=== PATIENT | male | born 1995 | race African-American/Black ===

== ENCOUNTER 2025-02-05 22:59 | Inpatient (IN) | payer MEDICAID ==
[~2025-02-05] VITALS: Ht 177.8 cm; Wt 73.5 kg
[2025-02-05] MEDS ORDERED: MORPHINE SULFATE INJ 2 MG/ML DISP.SYRIN ONE (23:52)
[2025-02-05] MEDS ORDERED: MORPHINE SULFATE INJ 4 MG/ML DISP.SYRIN ONE (23:52)
[2025-02-05] MEDS ORDERED: ONDANSETRON HCL/PF 4 MG/2 ML VIAL ONE (23:52)
[2025-02-06] MEDS: MORPHINE SULFATE INJ 2 MG/ML DISP.SYRIN IV ONE (00:04)
[2025-02-06] MEDS: ONDANSETRON HCL/PF 4 MG/2 ML VIAL IVP ONE (00:04)
[2025-02-06] MEDS: IV NS 0.9% 1,000 ML BAG IV ONE (00:04)
[2025-02-06 00:18] LABS: BASOPHILS % (AUTO) 0.5 % (0.0-2.0); EOSINOPHILS % (AUTO) 0.6 % (0.0-6.0); HEMATOCRIT 36 % (39-51); HEMOGLOBIN 12.1 g/dL (13.5-17.5); LYMPHOCYTES # (AUTO) 1.1 K/uL (0.8-4.8); LYMPHOCYTES % (AUTO) 13.8 % (20.0-44.0); MEAN CORPUSCULAR HEMOGLOBIN 31 PG (26.0-33.0); MEAN CORPUSCULAR HGB CONC 34 g/dl (31.0-36.0); MEAN CORPUSCULAR VOLUME 91 fL (80-96); MONOCYTES # (AUTO) 1.4 K/uL (0.1-1.30); MONOCYTES % (AUTO) 18.2 % (2.0-12.0); NEUTROPHILS # (AUTO) 5.3 K/uL (1.8-8.9); NEUTROPHILS % (AUTO) 66.9 % (43.0-81.0); PLATELET COUNT (AUTO) 610 K/uL (150-450); RED BLOOD CELL COUNT(AUTO) 3.91 MIL/uL (4.5-6.0); RED CELL DISTRIBUTION WIDTH 16.6 % (11.5-15.0)
[2025-02-06 00:32] LABS: CALCIUM, SERUM 9.6 mg/dL (8.5-10.1); CREATININE 0.9 mg/dL (0.6-1.3); POTASSIUM 4.4 mmol/L (3.5-5.1)
[2025-02-06 00:37] LABS: ALBUMIN 3.3 g/dL (3.4-5.0); BILIRUBIN,DIRECT 0.3 mg/dL (0.0-0.2); TOTAL PROTEIN, SERUM 8.3 g/dL (6.4-8.2)
[2025-02-06 00:40] LABS: LACTIC ACID 1.7 mmol/L (0.4-2.0)
[2025-02-06] MEDS ORDERED: HYDROMORPHONE 1 MG/1 ML DISP.SYRIN ONE ×2 (01:08→04:02)
[2025-02-06] MEDS: HYDROMORPHONE 1 MG/1 ML DISP.SYRIN IV ONE ×2 (01:11→04:04)
[2025-02-06 02:14] LABS: LYMPHOCYTES % (MANUAL) 20 % (16-48); MONOCYTES % (MANUAL) 13 % (0-11.0); NEUTROPHILS % (MANUAL) 67 (42-76)
[2025-02-06 02:15] LABS: ANISOCYTOSIS 1+; PLATELET ESTIMATE INCREASED
[2025-02-06 02:22] LABS: APPEARANCE,URINE CLOUDY (CLEAR); BILIRUBIN,URINE NEGATIVE (NEGATIVE); BLOOD, URINE 3+ Ery/uL (NEGATIVE); COLOR,URINE YELLOW (YELLOW); KETONES,URINE NEGATIVE (NEGATIVE); LEUKOCYTE ESTERASE ,URINE 2+ (NEGATIVE); NITRITE, URINE POSITIVE (NEGATIVE); PROTEIN,URINE 2+ mg/dl (NEGATIVE); UGLUCOSE NEGATIVE (NEGATIVE)
[2025-02-06] MEDS ORDERED: GABAPENTIN 300 MG CAPSULE ONE ×2 (02:29→08:28)
[2025-02-06] MEDS ORDERED: CEFTRIAXONE 1GM BAG (ER ONLY) 50 ML IV ONE (02:29)
[2025-02-06] MEDS: IV NS 0.9% 500 ML BAG IV ONE (02:29)
[2025-02-06] MEDS: GABAPENTIN 100 MG CAPSULE PO ONE (02:30)
[2025-02-06] MEDS: CEFTRIAXONE 1GM BAG (ER ONLY) 1 GM/50 ML PIGGYBACK IV ONE (02:30)
[2025-02-06 02:35] LABS: ADD URINE CULTURE YES; BACTERIA,URINE Many /HPF (None Seen); WBC,URINE 51-80 /HPF (0-3)
[2025-02-06 02:36] LABS: SQUAMOUS EPITHELIAL CELL,UR Few /HPF (None Seen)
[2025-02-06] MEDS ORDERED: Z GUARD REMEDY 4 OZ OINT TP PRN (06:00)
[2025-02-06] MEDS ORDERED: ONDANSETRON HCL/PF 4 MG/2 ML VIAL IVP PRN (06:00)
[2025-02-06] MEDS ORDERED: METHOCARBAMOL (500MG) 500 MG TABLET PO PRN (06:00)
[2025-02-06] MEDS ORDERED: ENOXAPARIN SODIUM 40 MG/0.4 ML DISP.SYRIN SQ ONE (06:51)
[2025-02-06] MEDS: ENOXAPARIN SODIUM 40 MG/0.4 ML DISP.SYRIN SQ SCH (06:53)
[2025-02-06] MEDS ORDERED: PANTOPRAZOLE 40 MG TABLET.DR PO ONE (07:44)
[2025-02-06] MEDS: PANTOPRAZOLE 40 MG TABLET.DR PO SCH (07:56)
[2025-02-06] MEDS ORDERED: oxyCODONE/APAP (5/325 MG) 1 UDTAB TABLET ONE (08:28)
[2025-02-06] MEDS: GABAPENTIN 300 MG CAPSULE PO SCH (08:31)
[2025-02-06] MEDS: oxyCODONE/APAP (5/325 MG) 1 UDTAB TABLET PO PRN (08:31)
[2025-02-06 09:15] VITALS: BP 128/61; TEMP 98.1; O2SAT 98
[2025-02-06 10:24] VITALS: BP 128/61; TEMP 98.1; O2SAT 98
[2025-02-06] MEDS: HYDROMORPHONE 1 MG/1 ML DISP.SYRIN IV PRN (11:00)
[2025-02-06] MEDS: POLYETHYLENE GLYCOL 3350 17 GM POWD.PACK PO SCH (12:14)
[2025-02-06] MEDS: METHOCARBAMOL (500MG) 500 MG TABLET PO SCH (12:14)
[2025-02-06 16:00] VITALS: BP 130/84; TEMP 98.6; O2SAT 98
[2025-02-06 16:12] VITALS: BP 130/84; TEMP 98.6; O2SAT 98
[2025-02-06 20:00] VITALS: BP 123/82; TEMP 99.3; O2SAT 99
[2025-02-06] MEDS: CEFTRIAXONE 1 G in IV D5W 50 ML IV SCH (22:56)
[2025-02-07 07:00] LABS: BASOPHILS % (AUTO) 0.3 % (0.0-2.0); EOSINOPHILS # (AUTO) 0.1 K/uL (0.0-0.7); EOSINOPHILS % (AUTO) 0.9 % (0.0-6.0); HEMATOCRIT 34 % (39-51); HEMOGLOBIN 11.2 g/dL (13.5-17.5); LYMPHOCYTES # (AUTO) 1.2 K/uL (0.8-4.8); MEAN CORPUSCULAR HEMOGLOBIN 30 PG (26.0-33.0); MEAN CORPUSCULAR HGB CONC 33 g/dl (31.0-36.0); MEAN CORPUSCULAR VOLUME 91 fL (80-96); MONOCYTES # (AUTO) 0.9 K/uL (0.1-1.30); MONOCYTES % (AUTO) 16.1 % (2.0-12.0); NEUTROPHILS # (AUTO) 3.6 K/uL (1.8-8.9); NEUTROPHILS % (AUTO) 61.7 % (43.0-81.0); PLATELET COUNT (AUTO) 518 K/uL (150-450); RED BLOOD CELL COUNT(AUTO) 3.74 MIL/uL (4.5-6.0); RED CELL DISTRIBUTION WIDTH 16.1 % (11.5-15.0); WHITE BLOOD COUNT (AUTO) 5.8 K/uL (4.3-11.0)
[2025-02-07 08:03] LABS: CALCIUM, SERUM 9.1 mg/dL (8.5-10.1); CREATININE 0.8 mg/dL (0.6-1.3); MAGNESIUM 1.9 mg/dL (1.8-2.4); PHOSPHORUS 4.8 mg/dL (2.5-4.9); POTASSIUM 4.1 mmol/L (3.5-5.1)
[2025-02-07 08:30] VITALS: BP 141/87; TEMP 98.1; O2SAT 100
[2025-02-07] MEDS: METHOCARBAMOL (750MG) 750 MG TABLET PO SCH (12:16)
[2025-02-07] MEDS: GABAPENTIN 400 MG CAPSULE PO SCH (12:17)
[2025-02-07] MEDS: POLYETHYLENE GLYCOL 3350 17 GM POWD.PACK PO SCH (13:53)
[2025-02-07] MEDS: oxyCODONE IR immediate release 5 MG TABLET PO PRN (15:37)
[2025-02-07 16:00] VITALS: BP 126/79; TEMP 98.2; O2SAT 98
[2025-02-07 20:00] VITALS: BP 126/95; TEMP 98.8; O2SAT 96
[2025-02-07 21:04] VITALS: BP 126/95; TEMP 98.8; O2SAT 96
[2025-02-08] MEDS: ACETAMINOPHEN 325 MG TABLET PO PRN (01:18)
[2025-02-08 07:06] LABS: BASOPHILS % (AUTO) 0.3 % (0.0-2.0); EOSINOPHILS # (AUTO) 0.1 K/uL (0.0-0.7); EOSINOPHILS % (AUTO) 0.8 % (0.0-6.0); HEMATOCRIT 34 % (39-51); HEMOGLOBIN 11.2 g/dL (13.5-17.5); LYMPHOCYTES # (AUTO) 1.2 K/uL (0.8-4.8); LYMPHOCYTES % (AUTO) 17.6 % (20.0-44.0); MEAN CORPUSCULAR HEMOGLOBIN 30 PG (26.0-33.0); MEAN CORPUSCULAR HGB CONC 33 g/dl (31.0-36.0); MEAN CORPUSCULAR VOLUME 91 fL (80-96); MONOCYTES % (AUTO) 14.8 % (2.0-12.0); NEUTROPHILS # (AUTO) 4.7 K/uL (1.8-8.9); NEUTROPHILS % (AUTO) 66.5 % (43.0-81.0); PLATELET COUNT (AUTO) 489 K/uL (150-450); RED BLOOD CELL COUNT(AUTO) 3.71 MIL/uL (4.5-6.0); RED CELL DISTRIBUTION WIDTH 16.4 % (11.5-15.0)
[2025-02-08 07:30] VITALS: BP 100/51; TEMP 98.1; O2SAT 97
[2025-02-08 07:35] LABS: CALCIUM, SERUM 9.2 mg/dL (8.5-10.1); CREATININE 0.8 mg/dL (0.6-1.3); POTASSIUM 4.1 mmol/L (3.5-5.1)
[2025-02-08] MEDS ORDERED: NALOXONE HCL 0.4 MG/ML AMPUL IV PRN (11:00)
[2025-02-08] MEDS: METHOCARBAMOL (750MG) 750 MG TABLET PO SCH (12:03)
[2025-02-08] MEDS: oxyCODONE HCL SR 20MG TAB.SR.12H PO SCH (12:04)
[2025-02-08] MEDS: GABAPENTIN 300 MG CAPSULE PO SCH (12:05)
[2025-02-08 16:00] VITALS: BP 139/103; TEMP 99; O2SAT 98
[2025-02-08 20:00] VITALS: BP 144/60; TEMP 98.6; O2SAT 100
[2025-02-09 08:00] VITALS: BP 132/67; TEMP 98.6; O2SAT 98
[2025-02-09 16:00] VITALS: BP 127/92; TEMP 98.4; O2SAT 100
[2025-02-09] MEDS: HYDROMORPHONE 1 MG/1 ML DISP.SYRIN IV PRN (19:36)
[2025-02-09 20:00] VITALS: BP 145/93; TEMP 98.4; O2SAT 98
[2025-02-09] MEDS: SENNOSIDES 8.6 MG TABLET PO SCH (21:55)
[2025-02-10 08:00] VITALS: BP 129/94; TEMP 98.8; O2SAT 100
[2025-02-10] MEDS: GABAPENTIN 400 MG CAPSULE PO SCH (12:31)
[2025-02-10 15:50] VITALS: BP 135/91; O2SAT 100
[2025-02-10 20:00] VITALS: BP 130/83; TEMP 99.1; O2SAT 100
[2025-02-10 20:40] VITALS: BP 130/83; TEMP 99.1; O2SAT 100
[2025-02-11 07:17] LABS: BASOPHILS % (AUTO) 0.2 % (0.0-2.0); EOSINOPHILS # (AUTO) 0.1 K/uL (0.0-0.7); HEMATOCRIT 31 % (39-51); HEMOGLOBIN 10.6 g/dL (13.5-17.5); LYMPHOCYTES # (AUTO) 1.1 K/uL (0.8-4.8); LYMPHOCYTES % (AUTO) 15.2 % (20.0-44.0); MEAN CORPUSCULAR HEMOGLOBIN 31 PG (26.0-33.0); MEAN CORPUSCULAR HGB CONC 35 g/dl (31.0-36.0); MEAN CORPUSCULAR VOLUME 90 fL (80-96); MONOCYTES # (AUTO) 0.9 K/uL (0.1-1.30); MONOCYTES % (AUTO) 13.1 % (2.0-12.0); NEUTROPHILS # (AUTO) 4.9 K/uL (1.8-8.9); NEUTROPHILS % (AUTO) 70.5 % (43.0-81.0); PLATELET COUNT (AUTO) 383 K/uL (150-450); RED BLOOD CELL COUNT(AUTO) 3.38 MIL/uL (4.5-6.0); RED CELL DISTRIBUTION WIDTH 15.6 % (11.5-15.0); WHITE BLOOD COUNT (AUTO) 6.9 K/uL (4.3-11.0)
[2025-02-11 07:28] LABS: CALCIUM, SERUM 9.1 mg/dL (8.5-10.1); MAGNESIUM 1.7 mg/dL (1.8-2.4); PHOSPHORUS 3.4 mg/dL (2.5-4.9); POTASSIUM 3.8 mmol/L (3.5-5.1)
[2025-02-11 08:00] VITALS: BP 113/79; TEMP 98.4; O2SAT 100
[2025-02-11] MEDS: MAGNESIUM OXIDE 400 MG TABLET PO ONE (09:15)
[2025-02-11 16:00] VITALS: BP 117/73; TEMP 98.4; O2SAT 100
[2025-02-11 20:00] VITALS: BP 118/73; TEMP 98.1; O2SAT 98
[2025-02-11 21:21] VITALS: BP 118/73; TEMP 98.1; O2SAT 98
[2025-02-12 06:32] LABS: BASOPHILS % (AUTO) 0.3 % (0.0-2.0); EOSINOPHILS # (AUTO) 0.1 K/uL (0.0-0.7); EOSINOPHILS % (AUTO) 1.1 % (0.0-6.0); HEMATOCRIT 31 % (39-51); HEMOGLOBIN 10.6 g/dL (13.5-17.5); LYMPHOCYTES # (AUTO) 0.9 K/uL (0.8-4.8); MEAN CORPUSCULAR HEMOGLOBIN 31 PG (26.0-33.0); MEAN CORPUSCULAR HGB CONC 35 g/dl (31.0-36.0); MEAN CORPUSCULAR VOLUME 90 fL (80-96); MONOCYTES # (AUTO) 0.8 K/uL (0.1-1.30); MONOCYTES % (AUTO) 15.4 % (2.0-12.0); NEUTROPHILS # (AUTO) 3.6 K/uL (1.8-8.9); NEUTROPHILS % (AUTO) 66.2 % (43.0-81.0); PLATELET COUNT (AUTO) 388 K/uL (150-450); RED BLOOD CELL COUNT(AUTO) 3.41 MIL/uL (4.5-6.0); RED CELL DISTRIBUTION WIDTH 15.7 % (11.5-15.0); WHITE BLOOD COUNT (AUTO) 5.5 K/uL (4.3-11.0)
[2025-02-12 06:54] LABS: CALCIUM, SERUM 8.9 mg/dL (8.5-10.1); CREATININE 0.8 mg/dL (0.6-1.3); MAGNESIUM 1.9 mg/dL (1.8-2.4); PHOSPHORUS 4.7 mg/dL (2.5-4.9); POTASSIUM 4.2 mmol/L (3.5-5.1)
[2025-02-12 07:00] VITALS: BP 126/92; TEMP 98.2; O2SAT 99
[2025-02-12 08:00] VITALS: BP 126/92; TEMP 98.2; O2SAT 99
[2025-02-12 10:37] LABS: NEUTROPHILS % (MANUAL) 71 (42-76)
[2025-02-12 10:38] LABS: ANISOCYTOSIS 1+; LYMPHOCYTES % (MANUAL) 18 % (16-48); MONOCYTES % (MANUAL) 11 % (0-11.0); PLATELET ESTIMATE ADEQUATE
[2025-02-12 16:00] VITALS: BP 118/77; TEMP 98.4; O2SAT 98
[2025-02-12] MEDS: PREGABALIN 25 MG CAPSULE PO SCH (16:21)
[2025-02-12 20:00] VITALS: BP 137/81; TEMP 98.8; O2SAT 99
[2025-02-13 06:26] LABS: BASOPHILS % (AUTO) 0.1 % (0.0-2.0); EOSINOPHILS % (AUTO) 0.9 % (0.0-6.0); HEMATOCRIT 34 % (39-51); HEMOGLOBIN 11.4 g/dL (13.5-17.5); LYMPHOCYTES # (AUTO) 0.9 K/uL (0.8-4.8); LYMPHOCYTES % (AUTO) 15.9 % (20.0-44.0); MEAN CORPUSCULAR HEMOGLOBIN 31 PG (26.0-33.0); MEAN CORPUSCULAR HGB CONC 34 g/dl (31.0-36.0); MEAN CORPUSCULAR VOLUME 91 fL (80-96); MONOCYTES # (AUTO) 0.7 K/uL (0.1-1.30); MONOCYTES % (AUTO) 12.2 % (2.0-12.0); NEUTROPHILS # (AUTO) 3.9 K/uL (1.8-8.9); NEUTROPHILS % (AUTO) 70.9 % (43.0-81.0); PLATELET COUNT (AUTO) 433 K/uL (150-450); RED CELL DISTRIBUTION WIDTH 15.8 % (11.5-15.0); WHITE BLOOD COUNT (AUTO) 5.5 K/uL (4.3-11.0)
[2025-02-13 06:42] LABS: CALCIUM, SERUM 9.3 mg/dL (8.5-10.1); CREATININE 0.9 mg/dL (0.6-1.3); MAGNESIUM 1.7 mg/dL (1.8-2.4); PHOSPHORUS 4.2 mg/dL (2.5-4.9); POTASSIUM 3.6 mmol/L (3.5-5.1)
[2025-02-13 07:00] VITALS: BP 119/78; TEMP 98.2; O2SAT 100
[2025-02-13] MEDS: MAGNESIUM OXIDE 400 MG TABLET PO ONE (10:06)
[2025-02-13] MEDS: MAGNESIUM HYDROXIDE 30 ML UDC PO PRN (10:07)
[2025-02-13 16:00] VITALS: BP 117/79; TEMP 98.2; O2SAT 99
[2025-02-13] MEDS: ACETAMINOPHEN 325 MG TABLET PO SCH (19:10)
[2025-02-13 20:00] VITALS: BP 103/66; TEMP 98.2; O2SAT 97
[2025-02-14 01:25] VITALS: BP 103/66; TEMP 98.2; O2SAT 97
[2025-02-14 06:37] LABS: BASOPHILS % (AUTO) 0.2 % (0.0-2.0); EOSINOPHILS % (AUTO) 0.7 % (0.0-6.0); HEMATOCRIT 36 % (39-51); HEMOGLOBIN 11.7 g/dL (13.5-17.5); LYMPHOCYTES # (AUTO) 1.1 K/uL (0.8-4.8); LYMPHOCYTES % (AUTO) 19.7 % (20.0-44.0); MEAN CORPUSCULAR HEMOGLOBIN 30 PG (26.0-33.0); MEAN CORPUSCULAR HGB CONC 33 g/dl (31.0-36.0); MEAN CORPUSCULAR VOLUME 91 fL (80-96); MONOCYTES # (AUTO) 0.7 K/uL (0.1-1.30); MONOCYTES % (AUTO) 12.1 % (2.0-12.0); NEUTROPHILS # (AUTO) 3.6 K/uL (1.8-8.9); NEUTROPHILS % (AUTO) 67.3 % (43.0-81.0); PLATELET COUNT (AUTO) 437 K/uL (150-450); RED BLOOD CELL COUNT(AUTO) 3.94 MIL/uL (4.5-6.0); WHITE BLOOD COUNT (AUTO) 5.4 K/uL (4.3-11.0)
[2025-02-14 07:01] LABS: CALCIUM, SERUM 9.1 mg/dL (8.5-10.1); CREATININE 0.8 mg/dL (0.6-1.3); PHOSPHORUS 4.6 mg/dL (2.5-4.9); POTASSIUM 4.1 mmol/L (3.5-5.1)
[2025-02-14 08:51] VITALS: BP 105/74; TEMP 97.7; O2SAT 100
[2025-02-14] MEDS: oxyCODONE IR immediate release 5 MG TABLET PO PRN (14:46)
[2025-02-14 16:00] VITALS: BP 110/78; TEMP 98.1; O2SAT 97
[2025-02-14 20:00] VITALS: BP 126/71; TEMP 98.2; O2SAT 99
[2025-02-15 08:00] VITALS: BP 128/90; TEMP 97.9; O2SAT 100
[2025-02-15 16:00] VITALS: BP 119/82; TEMP 98.1; O2SAT 98
[2025-02-15 20:00] VITALS: BP 130/83; TEMP 97.9; O2SAT 100
[2025-02-16 08:00] VITALS: BP 135/69; TEMP 98.2; O2SAT 97
[2025-02-16] MEDS ORDERED: METH750T3 PO ×2 (10:02→15:15)
[2025-02-16] MEDS ORDERED: oxyCODONE HCL SR 20MG PO (10:02)
[2025-02-16] MEDS ORDERED: SENN-175 PO ×2 (10:02→15:15)
[2025-02-16] MEDS ORDERED: POLY17PO29 PO ×2 (10:02→15:15)
[2025-02-16] MEDS ORDERED: PANT40TA49 PO (10:02)
[2025-02-16] MEDS ORDERED: PREG25CA PO ×2 (10:02→15:15)
[2025-02-16] MEDS ORDERED: ENOX40DI SQ (10:02)
[2025-02-16] MEDS ORDERED: OXYC5CAP18 PO (10:02)
[2025-02-16] MEDS ORDERED: OXYC20TA42 PO (15:15)
[2025-02-16] MEDS ORDERED: OXYC20TA58 PO (15:15)
[2025-02-16 16:00] VITALS: BP 116/94; TEMP 98.1; O2SAT 100
[2025-02-16 20:00] VITALS: BP 133/70; TEMP 98.2; O2SAT 99
[2025-02-17 08:00] VITALS: BP 129/85; TEMP 98.1; O2SAT 98
[2025-02-17 15:44] VITALS: BP 115/80; TEMP 98.4; O2SAT 99
[2025-02-17 16:00] VITALS: BP 115/80; TEMP 98.4; O2SAT 99
[2025-02-17 20:09] VITALS: BP 125/87; TEMP 98.4; O2SAT 98
[2025-02-18 07:30] VITALS: BP 113/77; TEMP 98.6; O2SAT 99
[2025-02-18 08:41] VITALS: BP 113/77; TEMP 98.6; O2SAT 99
[2025-02-18 15:39] VITALS: BP 119/82; TEMP 98.8; O2SAT 99
[2025-02-18 16:00] VITALS: BP 119/82; TEMP 98.8; O2SAT 99
[2025-02-18 20:00] VITALS: BP 120/73; TEMP 97.9; O2SAT 99
[2025-02-19 07:30] VITALS: BP 122/87; TEMP 98.1; O2SAT 97
[2025-02-19 16:05] VITALS: BP 114/75; TEMP 97.9; O2SAT 100
[2025-02-19 20:00] VITALS: BP 117/69; TEMP 98.6; O2SAT 97
[2025-02-19 22:00] VITALS: BP 117/69; TEMP 98.6; O2SAT 97
[2025-02-20 08:00] VITALS: BP 133/71; TEMP 98.2; O2SAT 100
== END 2025-02-20 17:26 | DRG 463 ==
LOC: ER 23:01 → MED 02-06 08:24
PROVIDERS: ADMIT Nurse Practitioner Acute Care; ATTEND Nurse Practitioner Acute Care
DX: N39.0 Urinary tract infection, site not specified (principal); S32.82XA Multiple fractures of pelvis without disruption of pelvic ring, initial encounter for closed fracture; G89.11 Acute pain due to trauma; G89.29 Other chronic pain; V86.55XA Driver of 3- or 4- wheeled all-terrain vehicle (ATV) injured in nontraffic accident, initial encounter; W01.0XXA Fall on same level from slipping, tripping and stumbling without subsequent striking against object, initial encounter; Y93.I9 Activity, other involving external motion; Y92.89 Other specified places as the place of occurrence of the external cause; R74.01 Elevation of levels of liver transaminase levels; K59.00 Constipation, unspecified; R26.89 Other abnormalities of gait and mobility; Z91.81 History of falling; B96.20 Unspecified Escherichia coli [E. coli] as the cause of diseases classified elsewhere; Z98.890 Other specified postprocedural states
CPT/HCPCS: 36415; 72190-TC; 80048-TC; 80076-TC; 81001; 83605-TC; 83735-TC; 84100-TC; 85025-TC; 87040-TC; 87081-TC; 87086-TC; 87186-TC; 97110-TC; 97116-TC; 97530-TC; 97535-TC; A4223; G0378; J0696; J1171; J1650; J2270; J2405; J3490; J7040; J7060